=== PATIENT | male | born 1985 | race Caucasian/White ===

== ENCOUNTER 2023-12-28 05:14 | Inpatient (IN) | payer OTHER ==
[2023-12-28 05:32] VITALS: BMI 22.7
[2023-12-28] MEDS ORDERED: ONDANSETRON *ODT* 4 MG TABLET ONE (06:37)
[2023-12-28] MEDS ORDERED: IBUPROFEN 400 MG TABLET (FP) PO PRN (06:42)
[2023-12-28] MEDS ORDERED: BENZOCAINE/MENTHOL (CHLORASEPTIC ) LOZENGE MM PRN (06:42)
[2023-12-28] MEDS ORDERED: LOPERAMIDE HCL 2 MG CAPSULE PO PRN (06:42)
[2023-12-28] MEDS ORDERED: MAG HYDROX/AL HYDROX/SIMETH 30 ML UNIT-DOSE CUP PO PRN (06:42)
[2023-12-28] MEDS ORDERED: MAGNESIUM HYDROX 2400MG/30ML ORAL SUSPENSION 30 ML CUP PO PRN (06:42)
[2023-12-28] MEDS ORDERED: ACETAMINOPHEN 325 MG TABLET (FP) PO PRN (06:42)
[2023-12-28] MEDS ORDERED: NICOTINE POLACRILEX 2 MG GUM BUC PRN (06:42)
[2023-12-28] MEDS ORDERED: NALOXONE (NYS OPIOID OVERDOSE PROGRAM) 4 MG/0.1 ML SPRAY NS PRN (06:42)
[2023-12-28] MEDS ORDERED: NALOXONE (NARCAN) HCL 4 MG/0.1 ML SPRAY NS PRN (06:42)
[2023-12-28] MEDS ORDERED: BISMUTH SUBSALICYLATE 524 MG/30 ML PO PRN (06:42)
[2023-12-28] MEDS ORDERED: POLYETHYLENE GLYCOL (HEALTHYLAX) 3350 17 GM PACKET PO PRN (06:42)
[2023-12-28] MEDS ORDERED: DICYCLOMINE HCL 10 MG CAPSULE PO PRN (06:42)
[2023-12-28] MEDS ORDERED: guaiFENesin 600 MG TABLET.ER (FP) PO PRN (06:42)
[2023-12-28] MEDS ORDERED: BENZONATATE 200 MG CAPSULE PO PRN (06:42)
[2023-12-28] MEDS ORDERED: ALBUTEROL SO4 HFA INHALER IH PRN (06:45)
[2023-12-28] MEDS: ONDANSETRON *ODT* 4 MG TABLET SL PRN (06:51)
[2023-12-28] MEDS ORDERED: hydrOXYzine PAMOATE 25 MG CAPSULE (FP) PO ONE (06:54)
[2023-12-28] MEDS ORDERED: chlordiazePOXIDE HCL 25 MG CAPSULE ONE (06:54)
[2023-12-28] MEDS ORDERED: IBUPROFEN 600 MG TABLET (FP) PO ONE (06:54)
[2023-12-28] MEDS: chlordiazePOXIDE HCL 25 MG CAPSULE PO PRN (07:00)
[2023-12-28] MEDS: IBUPROFEN 600 MG TABLET (FP) PO PRN (07:01)
[2023-12-28] MEDS: hydrOXYzine PAMOATE 25 MG CAPSULE (FP) PO PRN (07:03)
[2023-12-28] MEDS: NICOTINE 21 MG/24 HOURS TOPICAL PATCH TD SCH (10:43)
[2023-12-28] MEDS: PRENATAL VITAMINS W/ FOLIC ACID TABLET (FP) PO SCH (10:43)
[2023-12-28] MEDS: chlordiazePOXIDE HCL 25 MG CAPSULE PO SCH (10:46)
[2023-12-28] MEDS: OLANZapine 2.5 MG TABLET PO PRN (11:11)
[2023-12-28] MEDS: METHOCARBAMOL 500 MG TABLET PO PRN (11:14)
[2023-12-28] MEDS: hydrOXYzine PAMOATE 50 MG CAPSULE (FP) PO PRN (17:28)
[2023-12-28] MEDS ORDERED: OLANZapine 5 MG TABLET PO SCH (22:00)
[2023-12-28] MEDS: MELATONIN 5 MG TABLETS PO SCH (22:13)
[2023-12-28] MEDS: THIAMINE 100 MG TABLET PO SCH (22:13)
[2023-12-28] MEDS: OLANZapine 5 MG TABLET PO PRN (22:16)
[2023-12-29] MEDS ORDERED: ALBUTEROL SO4 HFA INHALER IH PRN (10:51)
[2023-12-29 12:23] LABS: HEMATOCRIT 38.6 % (35.4-49); HEMOGLOBIN 13.2 GM/dL (11.7-16.9); MCH 32.5 pg (25.7-33.7); MCHC 34.2 g/dl (32.0-35.9); MEAN CELL VOLUME 95.1 fl (80-96); MEAN PLT VOLUME 8.3 fl (7.5-11.1); PLATELET COUNT 194 10^3/uL (134-434); RBC 4.06 M/mm3 (4.00-5.60); RDW 12.7 % (11.9-15.9); WHITE BLOOD COUNT 7.3 K/mm3 (4.0-10.0)
[2023-12-29 12:29] LABS: POTASSIUM 4.3 mmol/L (3.5-5.1)
[2023-12-29 12:30] LABS: CALCIUM 8.6 mg/dL (8.5-10.1)
[2023-12-29 12:31] LABS: ALBUMIN 3.2 g/dl (3.4-5.0)
[2023-12-29 12:34] LABS: CREATININE 0.8 mg/dL (0.55-1.3)
[2023-12-29 12:36] LABS: BILIRUBIN,TOTAL 0.7 mg/dL (0.2-1); TOT PROT 5.9 g/dl (6.4-8.2)
[2023-12-29] MEDS: propRANOLol HCL 10 MG TABLET PO ONE (19:03)
[2023-12-30] MEDS: chlordiazePOXIDE HCL 25 MG CAPSULE PO SCH (05:38)
[2023-12-31] MEDS ORDERED: chlordiazePOXIDE HCL 10 MG CAPSULE PO PRN
[2023-12-31] MEDS: chlordiazePOXIDE HCL 10 MG CAPSULE PO SCH (05:51)
[2023-12-31] MEDS: amLODIPine BESYLATE 10 MG TABLET (FP) PO SCH (17:18)
[2024-01-01] MEDS: chlordiazePOXIDE HCL 10 MG CAPSULE PO SCH (05:55)
[2024-01-02] MEDS: chlordiazePOXIDE HCL 10 MG CAPSULE PO ONE (05:36)
[2024-01-02 12:48] VITALS: BP 135/89; PULSE 87; RESP 16; TEMP 97.3
== END 2024-01-02 15:47 | disposition other institution (70) | DRG 775 ==
LOC: YASAS 05:14 → Y3N 06:52
PROVIDERS: ADMIT Allergy & Immunology; ATTEND Allergy & Immunology
PROC: HZ2ZZZZ Detoxification Services for Substance Abuse Treatment (ICD-10-PCS; principal; 2023-12-28)
DX: F10.230 Alcohol dependence with withdrawal, uncomplicated (principal); F12.20 Cannabis dependence, uncomplicated; F17.210 Nicotine dependence, cigarettes, uncomplicated; F19.282 Other psychoactive substance dependence with psychoactive substance-induced sleep disorder; F19.280 Other psychoactive substance dependence with psychoactive substance-induced anxiety disorder; F19.250 Other psychoactive substance dependence with psychoactive substance-induced psychotic disorder with delusions; J45.909 Unspecified asthma, uncomplicated; Z59.01 Sheltered homelessness
CPT/HCPCS: 36415; 80053; 80305; 80307; 85027; 86780; 87811; 93005; 93010; Q0162

== ENCOUNTER 2024-01-02 15:46 | Inpatient (IN) | payer OTHER ==
[2024-01-02] MEDS ORDERED: MAG HYDROX/AL HYDROX/SIMETH 30 ML UNIT-DOSE CUP PO PRN (16:16)
[2024-01-02] MEDS ORDERED: NALOXONE (NARCAN) HCL 4 MG/0.1 ML SPRAY NS PRN (16:16)
[2024-01-02] MEDS ORDERED: POLYETHYLENE GLYCOL (HEALTHYLAX) 3350 17 GM PACKET PO PRN (16:16)
[2024-01-02] MEDS ORDERED: BENZONATATE 200 MG CAPSULE PO PRN (16:16)
[2024-01-02] MEDS ORDERED: hydrOXYzine PAMOATE 25 MG CAPSULE (FP) PO PRN (16:16)
[2024-01-02] MEDS ORDERED: guaiFENesin 600 MG TABLET.ER (FP) PO PRN (16:16)
[2024-01-02] MEDS ORDERED: MAGNESIUM HYDROX 2400MG/30ML ORAL SUSPENSION 30 ML CUP PO PRN (16:16)
[2024-01-02] MEDS ORDERED: LOPERAMIDE HCL 2 MG CAPSULE PO PRN (16:16)
[2024-01-02] MEDS ORDERED: METHOCARBAMOL 500 MG TABLET PO PRN (16:16)
[2024-01-02] MEDS ORDERED: IBUPROFEN 400 MG TABLET (FP) PO PRN (16:16)
[2024-01-02] MEDS ORDERED: NALOXONE HCL 0.4 MG/ML VIAL IVPUSH PRN (16:16)
[2024-01-02] MEDS ORDERED: IBUPROFEN 600 MG TABLET (FP) PO PRN (16:16)
[2024-01-02] MEDS ORDERED: ACETAMINOPHEN 325 MG TABLET (FP) PO PRN (16:16)
[2024-01-02] MEDS ORDERED: BENZOCAINE/MENTHOL (CHLORASEPTIC ) LOZENGE MM PRN (16:16)
[2024-01-02] MEDS ORDERED: NICOTINE POLACRILEX 4 MG GUM BUC PRN (16:16)
[2024-01-02] MEDS ORDERED: ALBUTEROL SO4 HFA INHALER IH PRN (16:25)
[2024-01-02] MEDS ORDERED: OLANZapine 5 MG TABLET PO PRN (17:09)
[2024-01-02] MEDS ORDERED: propRANOLol HCL 10 MG TABLET PO PRN (17:09)
[2024-01-02] MEDS: THIAMINE 100 MG TABLET PO SCH (23:48)
[2024-01-02] MEDS: MELATONIN 5 MG TABLETS PO SCH (23:48)
[2024-01-03] MEDS: PRENATAL VITAMINS W/ FOLIC ACID TABLET (FP) PO SCH (09:09)
[2024-01-03] MEDS: NICOTINE 21 MG/24 HOURS TOPICAL PATCH TD SCH (09:09)
[2024-01-03] MEDS: amLODIPine BESYLATE 10 MG TABLET (FP) PO SCH (09:09)
[2024-01-03] MEDS ORDERED: OLANZapine 5 MG TABLET PO ONE (10:00)
[2024-01-03] MEDS ORDERED: propRANOLol HCL 10 MG TABLET PO ONE (10:00)
[2024-01-22 07:00] VITALS: TEMP 97.3
[2024-01-23 07:05] VITALS: RESP 18
[2024-01-23 09:19] VITALS: BP 133/75; PULSE 78
[2024-01-23] MEDS ORDERED: NALOXONE (NYS OPIOID OVERDOSE PROGRAM) 4 MG/0.1 ML SPRAY NS PRN (10:00)
== END 2024-01-23 10:15 | disposition home or self-care (01) | DRG 772 ==
LOC: YASAS 15:46 → Y3NR 15:47 → Y5N 01-03 11:33
PROVIDERS: ADMIT Allergy & Immunology; ATTEND Psychiatry & Neurology Pain Medicine
PROC: HZ42ZZZ Group Counseling for Substance Abuse Treatment, Cognitive-Behavioral (ICD-10-PCS; principal; 2024-01-02)
DX: F10.20 Alcohol dependence, uncomplicated (principal); F10.282 Alcohol dependence with alcohol-induced sleep disorder; F10.280 Alcohol dependence with alcohol-induced anxiety disorder; G47.00 Insomnia, unspecified; I10 Essential (primary) hypertension; J45.909 Unspecified asthma, uncomplicated
CPT/HCPCS: 80305

== ENCOUNTER 2024-07-28 13:22 | Emergency (ER) | payer OTHER ==
[2024-07-28 13:30] VITALS: BP 125/95; PULSE 82; RESP 18; TEMP 98.4; BMI 25.0
== END 2024-07-28 17:30 | disposition home or self-care (01) ==
LOC: FER 13:22
DX: F10.90 Alcohol use, unspecified, uncomplicated (principal); Y90.9 Presence of alcohol in blood, level not specified
CPT/HCPCS: 82962; 99283-25

== ENCOUNTER 2024-07-29 21:12 | Inpatient (IN) | payer OTHER ==
[2024-07-29 21:46] VITALS: BMI 25.0
[2024-07-29] MEDS ORDERED: ONDANSETRON *ODT* 4 MG TABLET SL PRN (23:03)
[2024-07-29] MEDS ORDERED: guaiFENesin 600 MG TABLET.ER (FP) PO PRN (23:03)
[2024-07-29] MEDS ORDERED: ACETAMINOPHEN 325 MG TABLET (FP) PO PRN (23:03)
[2024-07-29] MEDS ORDERED: NICOTINE POLACRILEX 2 MG GUM BUC PRN (23:03)
[2024-07-29] MEDS ORDERED: IBUPROFEN 600 MG TABLET (FP) PO PRN (23:03)
[2024-07-29] MEDS ORDERED: BENZONATATE 200 MG CAPSULE PO PRN (23:03)
[2024-07-29] MEDS ORDERED: DICYCLOMINE HCL 10 MG CAPSULE PO PRN (23:03)
[2024-07-29] MEDS ORDERED: IBUPROFEN 400 MG TABLET (FP) PO PRN (23:03)
[2024-07-29] MEDS ORDERED: MAGNESIUM HYDROX 2400MG/30ML ORAL SUSPENSION 30 ML CUP PO PRN (23:03)
[2024-07-29] MEDS ORDERED: METHOCARBAMOL 500 MG TABLET PO PRN (23:03)
[2024-07-29] MEDS ORDERED: NALOXONE (NARCAN) HCL 4 MG/0.1 ML SPRAY NS PRN (23:03)
[2024-07-29] MEDS ORDERED: LOPERAMIDE HCL 2 MG CAPSULE PO PRN (23:03)
[2024-07-29] MEDS ORDERED: BENZOCAINE/MENTHOL (CHLORASEPTIC ) LOZENGE MM PRN (23:03)
[2024-07-29] MEDS ORDERED: POLYETHYLENE GLYCOL (HEALTHYLAX) 3350 17 GM PACKET PO PRN (23:03)
[2024-07-29] MEDS ORDERED: hydrOXYzine PAMOATE 25 MG CAPSULE (FP) PO PRN (23:03)
[2024-07-29] MEDS ORDERED: BISMUTH SUBSALICYLATE 524 MG/30 ML PO PRN (23:03)
[2024-07-29] MEDS ORDERED: chlordiazePOXIDE HCL 25 MG CAPSULE PO PRN (23:06)
[2024-07-30] MEDS ORDERED: chlordiazePOXIDE HCL 25 MG CAPSULE ONE (00:08)
[2024-07-30] MEDS: chlordiazePOXIDE HCL 25 MG CAPSULE PO SCH (00:12)
[2024-07-30] MEDS: PRENATAL VITAMINS W/ FOLIC ACID TABLET (FP) PO SCH (10:02)
[2024-07-30] MEDS: NICOTINE 14 MG/24 HOURS TOPICAL PATCH TD SCH (10:06)
[2024-07-30 11:37] LABS: HEMATOCRIT 40.5 % (40.1-51.0); HEMOGLOBIN 13.5 g/dL (13.7-17.5); MCHC 33.3 g/dl (32.3-36.5); MEAN CELL VOLUME 98.3 fl (79.0-92.2); MEAN PLT VOLUME 10.8 fl (9.4-12.4); PLATELET COUNT 224 x10^3/uL (163-337); RDW 12.3 % (12.0-15.6)
[2024-07-30 11:42] LABS: POTASSIUM 4.3 mmol/L (3.5-5.1)
[2024-07-30 11:50] LABS: CALCIUM 9.5 mg/dL (8.5-10.1)
[2024-07-30 11:51] LABS: ALBUMIN 3.9 g/dl (3.4-5.0); BLOOD UREA NITROGEN 8.4 mg/dL (7-18)
[2024-07-30 11:54] LABS: CREATININE 0.7 mg/dL (0.55-1.3)
[2024-07-30 11:55] LABS: BILIRUBIN,TOTAL 0.6 mg/dL (0.2-1)
[2024-07-30 11:56] LABS: TOT PROT 6.7 g/dl (6.4-8.2)
[2024-07-30] MEDS: THIAMINE 100 MG TABLET PO SCH (22:07)
[2024-07-30] MEDS: MELATONIN 5 MG TABLETS PO SCH (22:08)
[2024-07-30] MEDS: MAG HYDROX/AL HYDROX/SIMETH 30 ML UNIT-DOSE CUP PO PRN (22:11)
[2024-07-31] MEDS: chlordiazePOXIDE HCL 25 MG CAPSULE PO SCH (05:27)
[2024-08-01] MEDS ORDERED: chlordiazePOXIDE HCL 10 MG CAPSULE PO PRN
[2024-08-01] MEDS: chlordiazePOXIDE HCL 10 MG CAPSULE PO SCH (05:20)
[2024-08-02] MEDS: chlordiazePOXIDE HCL 10 MG CAPSULE PO SCH (05:30)
[2024-08-03] MEDS: chlordiazePOXIDE HCL 10 MG CAPSULE PO ONE (05:39)
[2024-08-03 06:23] VITALS: RESP 16
[2024-08-03 08:52] VITALS: BP 117/79; PULSE 91; TEMP 97.7
== END 2024-08-03 10:36 | disposition home or self-care (01) | DRG 775 ==
LOC: YASAS 21:12 → Y6N 23:10
PROVIDERS: ADMIT Allergy & Immunology; ATTEND Allergy & Immunology
PROC: HZ2ZZZZ Detoxification Services for Substance Abuse Treatment (ICD-10-PCS; principal; 2024-07-29)
DX: F10.230 Alcohol dependence with withdrawal, uncomplicated (principal); F12.20 Cannabis dependence, uncomplicated; F17.210 Nicotine dependence, cigarettes, uncomplicated; F19.280 Other psychoactive substance dependence with psychoactive substance-induced anxiety disorder; F19.250 Other psychoactive substance dependence with psychoactive substance-induced psychotic disorder with delusions; F19.24 Other psychoactive substance dependence with psychoactive substance-induced mood disorder; J45.30 Mild persistent asthma, uncomplicated; Z56.0 Unemployment, unspecified; Z59.01 Sheltered homelessness
CPT/HCPCS: 36415; 80053; 80305; 80307; 82962; 85027; 86780; 93005; 93010; 99283-25